=== PATIENT | male | born 1980 | race African-American/Black ===

== ENCOUNTER 2021-03-25 03:34 | Emergency (ER) | payer SELFPAY ==
[2021-03-25] MEDS ORDERED: Dexamethasone 10 MG/ML VIAL ONE (03:45)
[2021-03-25] MEDS ORDERED: Ibuprofen 200 MG TAB ONE (03:45)
[2021-03-25] MEDS ORDERED: Acetaminophen 500 MG TAB ONE (03:45)
== END 2021-03-25 03:48 | disposition home or self-care (01) ==
LOC: CSHERS 03:34
DX: J02.9 Acute pharyngitis, unspecified (principal); F17.210 Nicotine dependence, cigarettes, uncomplicated
CPT/HCPCS: 99283; J1100

== ENCOUNTER 2021-09-25 19:35 | Emergency (ER) | payer SELFPAY ==
[2021-09-25 20:01] LABS: #Eosinphils 0.1 10x3/uL (0.0-0.5); #Monocytes 0.6 10x3/uL (0.0-1.1); #Neutrophils 3.6 10x3/uL (1.5-8.4); %Basophils 0.4 % (0.0-2.0); %Lymphocytes 36.7 % (18.0-47.0); %Neutrophils 52.6 % (40.0-75.0); Hemoglobin 11.8 g/dL (13.5-17.5); Mean Corpuscular HGB CONC 31.6 g/dL (32.0-36.0); Mean Corpuscular Hemoglobin 30.5 pg (27.0-33.0); Mean Corpuscular Volume 96.6 fl (81.2-95.1); Mean Platelet Volume 9.3 fl (7.4-10.4); Platelet Count 215 10x3/uL (150-450); RBC Distribution Width 14.3 % (11.5-14.5); Red Blood Cell (RBC) Count 3.87 10x6/uL (4.32-5.72); White Blood Cell (WBC) Count 6.9 10x3/uL (3.5-10.5)
[2021-09-25 20:16] LABS: Acetaminophen Less than 6.0 mcg/mL (10.0-30.0); Alcohol Less than 10 mg/dL (Less than 10); Salicylate Less than 8.0 mg/dL (15.0-30.0)
[2021-09-25 20:18] LABS: ALT (SGPT) 19 U/L (8-55); AST (SGOT) 20 U/L (5-34); Albumin 3.9 g/dL (3.5-5.0); Alkaline Phosphatase 88 U/L (40-110); Anion Gap 11 mmol/L (10-20); BUN (Urea Nitrogen) 19 mg/dL (8.9-20.6); Bilirubin, Total 0.2 mg/dL (0.2-1.2); Calc. Creatinine Clearance 0 mL/min (70-130); Calcium 8.7 mg/dL (7.8-10.44); Carbon Dioxide 28 mmol/L (22-29); Chloride 112 mmol/L (98-107); Globulin 2.6 g/dL (2.4-3.5); Glucose 85 mg/dL (70-105); Potassium 4.1 mmol/L (3.5-5.1); Protein, Total 6.5 g/dL (6.0-8.3); Sodium 147 mmol/L (136-145)
[2021-09-25] MEDS ORDERED: risperiDONE 0.5 MG TAB ONE (20:29)
[2021-09-25] MEDS ORDERED: Lisinopril 10 MG TAB ONE (20:29)
[2021-09-25 21:22] LABS: Bilirubin Neg (Negative); Blood, Urine Negative (Negative); Clarity Clear (Clear); Glucose, Urine (Dipstick) Normal (Negative); Ketone, Urine 5 mg/dL (Negative); Leukocyte 25 (Negative); Nitrite Negative (Negative); Protein, Urine (Dipstick) 30 mg/dl (Neg-Trace)
[2021-09-25 21:30] LABS: Amphetamine Not Detected (NotDetected); Barbiturates Screen Not Detected (NotDetected); Benzodiazepine Screen Not Detected (NotDetected); Cocaine Metabolite Screen Detected (NotDetected); Methadone Not Detected (NotDetected); Methamphetamine Not Detected (NotDetected); Opiate Screen Not Detected (NotDetected); Oxycodone Screen Not Detected (NotDetected); Phencyclidine (PCP) Not Detected (NotDetected); THC/Cannabinoid Screen Detected (NotDetected); Tricyclic Screen Not Detected (NotDetected)
[2021-09-25 21:32] LABS: RBC/HPF None Seen HPF (0-3); WBC/HPF 0-3 HPF (0-3)
[2021-09-25 21:33] LABS: Bacteria/HPF 2+ HPF (None Seen)
[2021-09-26] MEDS ORDERED: Ziprasidone 20 MG CAP ONE (08:22)
[2021-09-26] MEDS ORDERED: Acetaminophen 500 MG TAB ONE (08:23)
[2021-09-26] MEDS ORDERED: diphenhydrAMINE 50 MG/ML VIAL ONE (15:41)
[2021-09-26] MEDS ORDERED: Haloperidol Lactate 5 MG/ML VIAL ONE (15:41)
[2021-09-26] MEDS ORDERED: Lorazepam 2 MG/ML VIAL ONE (15:42)
[2021-09-26] MEDS ORDERED: cefTRIAXone\\ROCEPHIN 1 GM VIAL ONE (20:05)
[2021-09-27] MEDS ORDERED: diphenhydrAMINE 50 MG/ML VIAL ONE (07:45)
[2021-09-27] MEDS ORDERED: Haloperidol Lactate 5 MG/ML VIAL ONE (07:45)
[2021-09-27] MEDS ORDERED: Lorazepam 2 MG/ML VIAL ONE (07:46)
[2021-09-28 20:40] LABS: Chlam.trachomatis by PCR,Urine Not Detected (NotDetected)
== END 2021-09-27 11:15 | disposition home or self-care (01) ==
LOC: CSHERS 19:35
DX: R45.851 Suicidal ideations (principal); F19.10 Other psychoactive substance abuse, uncomplicated; F20.9 Schizophrenia, unspecified; M25.571 Pain in right ankle and joints of right foot; M25.572 Pain in left ankle and joints of left foot; F17.210 Nicotine dependence, cigarettes, uncomplicated
CPT/HCPCS: 36415; 80053; 80306; 80307; 81003; 81015; 85025; 87086; 87491; 87591; 96372; 99285; J0696; J1200; J1630